=== PATIENT | male | born 1970 | race American Indian/Alaskan Native ===

== ENCOUNTER 2016-11-25 12:12 | Inpatient (IN) | payer OTHER ==
[2016-11-25] MEDS ORDERED: ZOFRAN IM ONE (13:15)
--- NOTE | 2016-11-25 13:17 | Emergency Department Report ---
Chief Complaint: Abdominal Pain Stated Complaint: ABD PAIN Time Seen by Provider: 11/25/16 13:11 - HPI History of Present Illness: 46-year-old male comes in with abdominal pain that radiates to his lower back that started 2 days ago. He does report nausea vomiting in triage he denies any diarrhea or fever. History of pancreatitis, kidney Fair and hypertension. Patient is currently on amlodipine 10 mg lisinopril 20 mg - Exam Vital Signs: Vital Signs 11/25/16 12:36 Temperature 97.8 F Pulse Rate 119 H Respiratory 24 Rate Blood Pressure 184/121 O2 Sat by Pulse 100 Oximetry Physical Exam: Vital signs. Blood pressure 168/116 heart rate is 119. Patient appears to be in discomfort. cardio: Tachycardic S1-S2 Respiratory: Clear to auscultation bilateral Abdomen: Very tender to palpate even with light palpitation. Bowel sounds within normal limits MSE screening note: Focused history and physical exam performed. Due to findings the following was ordered: Abdominal protocol ordered. We'll also order Zofran IM 8 mg to be evaluated in the back by the ER doctor ED Disposition for MSE Condition: Stable
[2016-11-25 13:37] LABS: Basophils % (Auto) 0.4 % (0.0-1.8); Mean Corpuscular HGB Conc 32 % (32-34); Mean Corpuscular Hemoglobin 27 pg (28-32); Mean Corpuscular Volume 85 fl (84-94); Platelet Count 311 K/mm3 (140-440); Red Blood Count 5.53 M/mm3 (3.65-5.03); Red Cell Distribution Width 16.3 % (13.2-15.2); White Blood Count 14.4 K/mm3 (4.5-11.0)
[2016-11-25 13:59] LABS: Alanine Aminotransferase 23 units/L (7-56); Albumin 4.7 g/dL (3.9-5); Albumin/Globulin Ratio 1.1 %; Alkaline Phosphatase 124 units/L (35-129); Anion Gap 32 mmol/L; Bilirubin,Total 0.6 mg/dL (0.1-1.2); Blood Urea Nitrogen 21 mg/dL (9-20); Calcium 10.6 mg/dL (8.4-10.2); Carbon Dioxide 18 mmol/L (22-30); Chloride 94.1 mmol/L (98-107); Glucose 145 mg/dL (75-100); Potassium 4.2 mmol/L (3.6-5.0); Sodium 140 mmol/L (137-145); Total Protein 8.8 g/dL (6.3-8.2)
--- NOTE | 2016-11-25 14:16 | Cat Scan Report ---
CT scan of abdomen and pelvis without IV contrast: History: Upper quadrant pain tenderness and vomiting. Findings: Normal lung bases. No pleural pericardial effusion. Normal liver spleen pancreas and gallbladder. There is thickening noted of the wall of the antrum and duodenum. Stranding of the adjacent fatty tissue. No definite free air is identified. No fluid level is seen. Visualized adrenals and kidneys appears normal. No evidence of adenopathy. Impression: Findings suggestive of severe peptic ulcer disease. Further evaluation is recommended.
[2016-11-25 14:36] LABS: Lipase 1387 units/L (13-60)
--- NOTE | 2016-11-25 15:10 | Admit Criteria Form ---
Admission Criteria Documentation: PANCREATITIS Clinical Indications for Admission to Inpatient Care (Place 'X' for any and all applicable criteria): Admission is indicated for ANY ONE of the following (1)(2)(3)(4): [X]I. Acute pancreatitis[A] as indicated by 2 or more of the following: [X]a) Abdominal pain (eg, epigastric, left upper quadrant) [X]b) Serum amylase or serum lipase greater than 3 times the upper limit of normal [ ]c) Characteristic findings from abdominal imaging (eg, pancreatic inflammation, pancreatic necrosis, peripancreatic fluid collection)[B] [ ]II. Pancreatitis (acute or chronic) requiring inpatient care as indicated by 1 or more of the following: [ ]a) Inability to maintain oral hydration Hypoxemia [ ]b) Evidence of infection (eg, fever, peripancreatic abscess) [ ]c) Severe pain requiring acute inpatient management [ ]d) Hemodynamic instability [ ]e) Hypoxemia [ ]f) Acute renal failure [ ]g) Severe electrolyte abnormalities Extended stay beyond goal length of stay may be needed for (1)(11) [ ]a) Severe acute pancreatitis (10)(19) [ ]b) Persistent symptoms, ascites, or pleural effusion [ ]c) Abdominal compartment syndrome (10) [ ]d) Late complications [ ]e) Acute renal failure (27) [ ]f) Gallstones in gallbladder The original [employer] content created by [employer] has been revised. The portions of the content which have been revised are identified through the use of italic text or in bold,and [facility] has neither reviewed nor approved the modified material.All other unmodified content is copyright [employer]. Please see references footnoted in the original [employer] edition 2016 Admission Criteria Met: Yes
[2016-11-25] MEDS ORDERED: REGLAN IV ONE (15:26)
[2016-11-25] MEDS ORDERED: NACL 0.9% 1000 ML 1,000 ML IV ONE (15:26)
[2016-11-25] MEDS ORDERED: DILAUDID IV ONE ×3 (15:26→20:40)
[2016-11-25] MEDS ORDERED: PROTONIX IV ONE (15:26)
--- NOTE | 2016-11-25 16:02 | Emergency Department Report ---
ED Abdominal Pain HPI - General Chief Complaint: Abdominal Pain Stated Complaint: ABD PAIN Time Seen by Provider: 11/25/16 13:11 Source: patient, RN notes reviewed Mode of arrival: Ambulatory Limitations: No Limitations - History of Present Illness Initial Comments: This is a 46-year-old male. He is previously unknown to me. He is visiting from [place]. Has a past medical history of pancreatitis, hypertension, renal insufficiency. Patient reports being admitted to a hospital in [place] last year for pancreatitis. He denies alcohol consumption. He denies recent viral symptoms. Presents to the ER complaining diffuse abdominal pain that radiates to his back. Positive nausea and vomiting. Positive generalized weakness. Denies alcohol consumption. Pain is sharp. It increases with palpation and range of motion. Decreases with rest. Denies hematemesis, denies bright red blood per rectum. MD Complaint: abdominal pain -: Gradual Location: diffuse Radiation: back Severity scale (0 -10): 10 Quality: aching Consistency: constant Improves With: medication Worsens With: vomiting Associated Symptoms: nausea, vomiting - Related Data Home Medications Medication Instructions Recorded Confirmed Last Taken Lisinopril [Zestril TAB] 20 mg PO DAILY 11/25/16 11/25/16 Unknown amLODIPine [Norvasc] 10 mg PO QHS 11/25/16 11/25/16 Unknown Allergies Allergy/AdvReac Type Severity Reaction Status Date / Time No Known Allergies Allergy Unverified 11/25/16 12:35 ED Review of Systems ROS: Stated complaint: ABD PAIN Other details as noted in HPI Constitutional: malaise, weakness Eyes: denies: vision change ENT: denies: epistaxis Respiratory: denies: cough Cardiovascular: denies: chest pain Gastrointestinal: abdominal pain, nausea, vomiting Genitourinary: denies: dysuria Musculoskeletal: back pain Skin: denies: lesions Neurological: weakness Psychiatric: as per HPI, anxiety ED Past Medical Hx - Past Medical History Hx Hypertension: Yes Additional medical history: Kidney failure, pancreatitis - Surgical History Additional Surgical History: Tonsil, carpal tunnel - Social History Smoking Status: Current Every Day Smoker Substance Use Type: None - Medications Home Medications: Home Medications Medication Instructions Recorded Confirmed Last Taken Type Lisinopril [Zestril TAB] 20 mg PO DAILY 11/25/16 11/25/16 Unknown History amLODIPine [Norvasc] 10 mg PO QHS 11/25/16 11/25/16 Unknown History ED Physical Exam - General Limitations: No Limitations General appearance: alert, in distress - Head Head exam: Present: atraumatic, normocephalic - Eye Eye exam: Present: normal appearance, EOMI. Absent: nystagmus - ENT ENT exam: Present: normal exam, normal orophraynx, mucous membranes moist - Neck Neck exam: Present: normal inspection, full ROM. Absent: tenderness, meningismus - Respiratory Respiratory exam: Present: normal lung sounds bilaterally. Absent: respiratory distress, wheezes, rales, rhonchi, stridor, chest wall tenderness - Cardiovascular Cardiovascular Exam: Present: normal rhythm, tachycardia, normal heart sounds. Absent: systolic murmur, diastolic murmur, rubs, gallop - GI/Abdominal GI/Abdominal exam: Present: soft, tenderness, normal bowel sounds. Absent: distended, guarding, rebound, rigid, pulsatile mass - Rectal Rectal exam: Present: deferred - Extremities Exam Extremities exam: Present: normal inspection, full ROM, normal capillary refill. Absent: tenderness, pedal edema, joint swelling, calf tenderness - Back Exam Back exam: Present: normal inspection, full ROM. Absent: tenderness, CVA tenderness (R), CVA tenderness (L), muscle spasm, paraspinal tenderness, vertebral tenderness - Neurological Exam Neurological exam: Present: alert, oriented X3 - Psychiatric Psychiatric exam: Present: anxious - Skin Skin exam: Present: warm, dry, intact, normal color. Absent: rash ED Course Vital Signs 11/25/16 11/25/16 11/25/16 12:36 14:20 14:48 Temperature 97.8 F 98.5 F Pulse Rate 119 H 111 H Respiratory 24 16 18 Rate Blood Pressure 184/121 Blood Pressure 178/105 [Left] O2 Sat by Pulse 100 98 98 Oximetry 11/25/16 15:00 Temperature Pulse Rate 110 H Respiratory 20 Rate Blood Pressure Blood Pressure 174/112 [Left] O2 Sat by Pulse 100 Oximetry - Reevaluation(s) Reevaluation #1: 11/25/16 16:02 differential diagnosis: GERD, gastritis, pancreatitis, peptic ulcer disease, hypertensive urgency secondary to pain Assessment and plan: This is a 46-year-old male with diffuse abdominal pain, history of pancreatitis, elevated lipase, diffuse abdominal tenderness, CT scan of the abdomen and pelvis demonstrates no surgical disease. He will be given IV fluids, pain medication, nausea medication. Elevated blood pressure is appreciated, this is most likely secondary to his pain. Case is discussed with the Hospital physician, Dr. Sims, who accepts the patient to his service. He requests gastroenterology consultation. Case is discussed with gastroenterology, Dr. chopra, who graciously will follow along as a consult. ED Medical Decision Making - Lab Data Result diagrams: 11/25/16 13:27 11/25/16 13:27 Vital Signs 11/25/16 11/25/16 11/25/16 12:36 14:20 14:48 Temperature 97.8 F 98.5 F Pulse Rate 119 H 111 H Respiratory 24 16 18 Rate Blood Pressure 184/121 Blood Pressure 178/105 [Left] O2 Sat by Pulse 100 98 98 Oximetry Lab Results 11/25/16 11/25/16 Range/Units 13:27 13:27 WBC 14.4 H (4.5-11.0) K/mm3 RBC 5.53 H (3.65-5.03) M/mm3 Hgb 15.0 (11.8-15.2) gm/dl Hct 47.0 H (35.5-45.6) % MCV 85 (84-94) fl MCH 27 L (28-32) pg MCHC 32 (32-34) % RDW 16.3 H (13.2-15.2) % Plt Count 311 (140-440) K/mm3 Lymph % (Auto) 9.8 L (13.4-35.0) % [place] % (Auto) 2.6 (0.0-7.3) % Eos % (Auto) 0.0 (0.0-4.3) % Baso % (Auto) 0.4 (0.0-1.8) % Lymph # 1.4 (1.2-5.4) K/mm3 [place] # 0.4 (0.0-0.8) K/mm3 Eos # 0.0 (0.0-0.4) K/mm3 Baso # 0.1 (0.0-0.1) K/mm3 Seg Neutrophils % 87.2 H (40.0-70.0) % Seg Neutrophils # 12.6 H (1.8-7.7) K/mm3 Sodium 140 (137-145) mmol/L Potassium 4.2 (3.6-5.0) mmol/L Chloride 94.1 L (98-107) mmol/L Carbon Dioxide 18 L (22-30) mmol/L Anion Gap 32 mmol/L BUN 21 H (9-20) mg/dL Creatinine 1.0 (0.8-1.5) mg/dL Estimated GFR > 60 ml/min BUN/Creatinine Ratio 21.00 % Glucose 145 H (75-100) mg/dL Calcium 10.6 H (8.4-10.2) mg/dL Total Bilirubin 0.6 (0.1-1.2) mg/dL AST 18 (5-40) units/L ALT 23 (7-56) units/L Alkaline Phosphatase 124 (35-129) units/L Total Protein 8.8 H (6.3-8.2) g/dL Albumin 4.7 (3.9-5) g/dL Albumin/Globulin Ratio 1.1 % Lipase 1387 H (13-60) units/L - Radiology Data Radiology results: report reviewed, image reviewed Noncontrast CT scan of the abdomen and pelvis suggest severe peptic ulcer disease. No acute surgical processes noted. No evidence of perforation is noted. Critical care attestation.: If time is entered above; I have spent that time in minutes in the direct care of this critically ill patient, excluding procedure time. ED Disposition Clinical Impression: Pancreatitis Qualifiers: Chronicity: acute Pancreatitis type: other Acute pancreatitis complication: unspecified Qualified Code(s): K85.80 - Other acute pancreatitis without necrosis or infection Disposition: OP ADMITTED IP TO THIS HOSP Is pt being admited?: Yes Condition: Stable Referrals: PRIMARY CARE, [Primary Care Provider] - 3-5 Days
[2016-11-25 16:34] LABS: Bilirubin,Urine NEG (Negative); Blood,Urine NEG (Negative); Ketones,Urine 80 mg/dL (Negative); Leukocyte Esterase,Urine NEG (Negative); Mucus,Urine FEW /HPF; Nitrite,Urine NEG (Negative); Urobilinogen,Urine < 2.0 mg/dL (<2.0)
[2016-11-25 16:44] LABS: Protein,Urine >500 mg/dL (Negative)
--- NOTE | 2016-11-25 20:41 | Event Note ---
Date: 11/25/16 See H/p in reports Acute pancreatitis PUD by CT scan COPD HTN uncontrolled Nicotine Dependence
[2016-11-25] MEDS ORDERED: TYLENOL PO PRN (20:44)
[2016-11-25] MEDS ORDERED: MILK OF MAGNESIA PO PRN (20:44)
[2016-11-25] MEDS ORDERED: DULCOLAX PR PRN (20:44)
[2016-11-25] MEDS ORDERED: D5/0.45NS 1,000 ML IV SCH (21:00)
[2016-11-25] MEDS ORDERED: CATAPRES-TTS PATCH TD SCH (22:00)
[2016-11-25] MEDS: ZOFRAN IV PRN (23:44)
[2016-11-25] MEDS: DILAUDID IV PRN (23:44)
[2016-11-26] MEDS: DILAUDID IV PRN ×6 (04:00→20:08)
[2016-11-26] MEDS: ZOFRAN IV PRN ×6 (04:14→20:08)
--- NOTE | 2016-11-26 07:00 | Gastroenterology Consultation ---
History of Present Illness - Reason for Consult Consult date: 11/26/16 Abdominal pain, nausea/vomiting Requesting physician: FREEMAN AYALA - History of Present Illness Asked to see this 46yo man visiting from [place] for evaluation of abdominal pain. He states that the pain began 2 days ago and states that it is in his entire abdomen, but moreso in the upper abdomen. He has associated nausea/ vomiting. Mr. Garcia states that he has a history of pancreatitis secondary to EtOH 1.5 yrs ago and that he largely ceased EtOH intake. 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 No other NSAID usage. No black, tarry stools. Labs revealed a normal Hb, but elevated lipase; however, CT scan mentions severe PUD. No CP/SOB. Past History Past Medical History: other (pancreatitis, kidney failure) Past Surgical History: tonsillectomy, Other (carpal tunnel) Social history: smoking, other (drinks 1 drink per week) Family history: no significant family history Medications and Allergies Allergies Allergy/AdvReac Type Severity Reaction Status Date / Time No Known Allergies Allergy Unverified 11/25/16 12:35 Home Medications Medication Instructions Recorded Confirmed Last Taken Type Lisinopril [Zestril TAB] 20 mg PO DAILY 11/25/16 11/25/16 Unknown History amLODIPine [Norvasc] 10 mg PO QHS 11/25/16 11/25/16 Unknown History Active Meds: Active Medications Acetaminophen (Tylenol) 650 mg PO Q4H PRN PRN Reason: Pain MILD(1-3)/Fever >100.5/JIMENEZ Bisacodyl (Dulcolax) 10 mg LA QDAY PRN PRN Reason: Constipation unrelieved by MOM Clonidine HCl (Catapres-Tts Patch) 0.2 mg TD Fr NIDA Last Admin: 11/25/16 23:45 Dose: 0.2 mg Hydromorphone HCl (Dilaudid) 2 mg IV Q3H PRN PRN Reason: Pain , Severe (7-10) Last Admin: 11/26/16 04:00 Dose: 2 mg Dextrose/Sodium Chloride (D5/0.45ns) 1,000 mls @ 100 mls/hr IV DIRECT NIDA Last Admin: 11/25/16 23:43 Dose: 100 mls/hr Magnesium Hydroxide (Milk Of Magnesia) 30 ml PO Q4H PRN PRN Reason: Constipation Ondansetron HCl (Zofran) 4 mg IV Q3H PRN PRN Reason: N/V unrelieved by Tiff Last Admin: 11/26/16 04:14 Dose: 4 mg Review of Systems - Review of Systems All systems: negative (abdominal pain, nausea/vomiting) Exam - Constitutional Vital Signs: Temp Pulse Resp BP Pulse Ox 98.0 F 112 H 18 187/108 100 11/26/16 00:00 11/26/16 00:00 11/26/16 04:00 11/26/16 00:00 11/25/16 21:00 General appearance: mild distress - EENT Eyes: PERRL - Neck Neck: supple - Respiratory Respiratory: bilateral: CTA - Cardiovascular Rhythm: regular Heart Sounds: Present: S1 & S2 Extremities: No edema - Gastrointestinal General gastrointestinal: Present: soft, tender (diffusely, but mostly in epigastrium), non-distended, normal bowel sounds - Integumentary Integumentary: Present: clear - Neurologic Neurological: alert and oriented x3 - Psychiatric Psychiatric: appropriate mood/affect - Labs CBC & Chem 7: 11/25/16 13:27 11/25/16 13:27 - Imaging CT Scan: report reviewed (c/w severe PUD) Assessment and Plan 46yo man admitted with 2 days of worsening abdominal pain, nausea/vomiting. He has a history of pancreatitis 1.5yrs ago, secondary to EtOH. He states that he is drinking minimal EtOH at this time. Lipase is elevated and his physical exam is c/w pancreatitis; however, CT scan mentions severe PUD. He has a hx of NSAID usage, but his pain is somewhat out of proportion to what is typically seen with PUD. Rec: 1) Increase IVF to 200cc/hr 2) Check TG's 3) Check CRP 4) Pain control/anti-emetics 5) Can give empiric PPI for now and if he fails to progress over the next 24-36 hours, I will consider an EGD Thank you for allowing me to participate in the care of your patient.
[2016-11-26] MEDS: NACL 0.9% 1000 ML 1,000 ML IV SCH ×2 (07:43→17:17)
[2016-11-26] MEDS: PROTONIX IV SCH (10:21)
[2016-11-26] MEDS ORDERED: CATAPRES-TTS PATCH TD SCH ×3 (10:24→11:00)
[2016-11-26] MEDS ORDERED: HABITROL TD SCH (11:00)
[2016-11-26] MEDS ORDERED: NORMODYNE IV ONE (11:00)
--- NOTE | 2016-11-26 11:13 | History and Physical Report ---
CHIEF COMPLAINT: Severe abdominal pain for 2 days. HISTORY OF PRESENT ILLNESS: A 46-year-old male with a history of pancreatitis in the past comes in for severe nausea, vomiting, and pain. Pain is 10 on a scale of 1-10. It is very sharp pain. No hematemesis. No bright red blood per rectum. Pain is localized to the epigastric and periumbilical region. Vomited three times. He had pancreatitis one year ago in [place]. The patient denies alcohol consumption. The patient states that it was idiopathic pancreatitis. PAST MEDICAL HISTORY: Significant for hypertension, kidney failure, and pancreatitis. PAST SURGICAL HISTORY: Tonsils removal and carpal tunnel surgery. SOCIAL HISTORY: Smokes a pack a day. CURRENT MEDICATIONS: Lisinopril 20 mg daily and amlodipine 10 mg p.o. at bedtime. FAMILY HISTORY: Significant for hypertension. REVIEW OF SYSTEMS: CONSTITUTIONAL: No weight loss. No weight gain. HEENT: No sore throat. No postnasal drip. CARDIOVASCULAR: No chest pain. No palpitations. RESPIRATORY SYSTEM: No cough. GASTROINTESTINAL: Severe epigastric pain present, but no hemetemesis. No melena. Vomiting 3-4 times for today. No diarrhea. Pain is 10 on a scale of 1-10. GENITOURINARY SYSTEM: No dysuria. No flank pain. MUSCULOSKELETAL SYSTEM: No joint pains. No muscle pains. CENTRAL NERVOUS SYSTEM: No syncope. No seizures. SKIN: No rashes. A 14-point review of systems was done and essentially negative. PHYSICAL EXAMINATION: GENERAL: Middle aged male cooperative during examination. VITAL SIGNS: Blood pressure is 184/121 and repeat was 174/112. HEENT: Unremarkable. Pupils are equal and reactive. NECK: Supple. No lymphadenopathy. No thyromegaly. LUNGS: Clear to auscultation and percussion. Good air entry. CARDIOVASCULAR: S1 and S2 heard. No gallop. No murmur. No rub. Apical impulse in left fifth intercostal space and midclavicular line. ABDOMEN: Tender in the epigastric region. Guarding present in the epigastric region. Bowel sounds are normal. Hernial orifices are normal. EXTREMITIES: Good pedal pulses. No pedal edema. CENTRAL NERVOUS SYSTEM: Alert and oriented x4. Nonfocal exam. LABORATORY DATA: Significant for white count of 14,400, H and H 15.0 and 47.0, platelet count is 311,000, sodium is 140, potassium is 4.2, chloride is 94.1, bicarbonate is 18, BUN and creatinine is 21 and 1.0, glucose is 146, calcium is 10.6, lipase is 1387, and total protein is 8.8. Urine is negative. DIAGNOSTIC DATA: Abdominal CAT scan was done, which did not show any acute pancreatitis, but showed severe peptic ulcer disease. There was thickening of the wall of the antrum and duodenum stranding of adjacent fatty tissue. ASSESSMENT AND PLAN: 1. Acute pancreatitis. We will keep the patient n.p.o. IV fluids for the time being. TPN if necessary after 48-72 hours. 2. Peptic ulcer disease, possible. GI consult requested. 3. Hypertensive emergency. The patient was initiated on Catapres TTS 2 patch, which was changed Catapres TTS 3 patch. 4. Nicotine dependence with Nicoderm patch and 21 mg daily initiated. 5. Deep venous thrombosis prophylaxis, Lovenox 40 mg subcutaneous daily. JOB# [id number] VSAllen/NTS
--- NOTE | 2016-11-26 12:43 | Progress Note ---
Assessment and Plan Assessment and plan: Acute pancreatitis -We'll keep nothing by mouth - Continue aggressive IV fluid hydration -As needed pain and nausea medicine with IV - GI following Hypertensive emergency -Continue clonidine patch - Labetalol IV as needed Nicotine dependence -Placed on nicotine patch GI and DVT prophylaxis -Continue Protonix and Lovenox History Interval history: Patient seen and examined. Medical records and medication list reviewed. Patient c/o abdominal pain and nausea with vomiting Hospitalist Physical - Physical exam Narrative exam: GENERAL: well-developed white male lying on bed appeared to be in moderate discomfort. HEENT: Normocephalic. Atraumatic. No conjunctival congestion or icterus. Patient has moist mucous membranes. NECK: Supple. Trachea midline. CHEST/LUNGS: Clear to auscultated bilaterally, breathing nonlabored. No wheezes crackles or rhonchi. HEART/CARDIOVASCULAR: Regular in rate and rhythm. S1 and S2 positive. ABDOMEN: Abdomen is soft, epigastric tenderness. Patient has normal bowel sounds. SKIN: There is no rash. Warm and dry. NEURO: No focal motor deficit. Follows command. MUSCULOSKELETAL: No joint effusion or tenderness. EXTRIMITY: No edema, no cyanosis or clubbing. PSYCH: Cooperative. - Constitutional Vitals: Temp Pulse Resp BP Pulse Ox 98.0 F 95 H 18 188/112 100 11/26/16 00:00 11/26/16 11:15 11/26/16 04:00 11/26/16 11:15 11/25/16 21:00 Results - Labs CBC & Chem 7: 11/25/16 13:27 11/25/16 13:27 Labs: Laboratory Last Values WBC 14.4 K/mm3 (4.5-11.0) H 11/25/16 13:27 RBC 5.53 M/mm3 (3.65-5.03) H 11/25/16 13:27 Hgb 15.0 gm/dl (11.8-15.2) 11/25/16 13:27 Hct 47.0 % (35.5-45.6) H 11/25/16 13:27 MCV 85 fl (84-94) 11/25/16 13:27 MCH 27 pg (28-32) L 11/25/16 13:27 MCHC 32 % (32-34) 11/25/16 13:27 RDW 16.3 % (13.2-15.2) H 11/25/16 13:27 Plt Count 311 K/mm3 (140-440) 11/25/16 13:27 Lymph % (Auto) 9.8 % (13.4-35.0) L 11/25/16 13:27 [place] % (Auto) 2.6 % (0.0-7.3) 11/25/16 13:27 Eos % (Auto) 0.0 % (0.0-4.3) 11/25/16 13:27 Baso % (Auto) 0.4 % (0.0-1.8) 11/25/16 13:27 Lymph # 1.4 K/mm3 (1.2-5.4) 11/25/16 13:27 [place] # 0.4 K/mm3 (0.0-0.8) 11/25/16 13:27 Eos # 0.0 K/mm3 (0.0-0.4) 11/25/16 13:27 Baso # 0.1 K/mm3 (0.0-0.1) 11/25/16 13:27 Seg Neutrophils % 87.2 % (40.0-70.0) H 11/25/16 13:27 Seg Neutrophils # 12.6 K/mm3 (1.8-7.7) H 11/25/16 13:27 Sodium 140 mmol/L (137-145) 11/25/16 13:27 Potassium 4.2 mmol/L (3.6-5.0) 11/25/16 13:27 Chloride 94.1 mmol/L (98-107) L 11/25/16 13:27 Carbon Dioxide 18 mmol/L (22-30) L 11/25/16 13:27 Anion Gap 32 mmol/L 11/25/16 13:27 BUN 21 mg/dL (9-20) H 11/25/16 13:27 Creatinine 1.0 mg/dL (0.8-1.5) 11/25/16 13:27 Estimated GFR > 60 ml/min 11/25/16 13:27 BUN/Creatinine Ratio 21.00 % 11/25/16 13:27 Glucose 145 mg/dL (75-100) H 11/25/16 13:27 Calcium 10.6 mg/dL (8.4-10.2) H 11/25/16 13:27 Total Bilirubin 0.6 mg/dL (0.1-1.2) 11/25/16 13:27 AST 18 units/L (5-40) 11/25/16 13:27 ALT 23 units/L (7-56) 11/25/16 13:27 Alkaline Phosphatase 124 units/L (35-129) 11/25/16 13:27 C-Reactive Protein 1.00 mg/dL (0.00-1.30) 11/26/16 07:12 Total Protein 8.8 g/dL (6.3-8.2) H 11/25/16 13:27 Albumin 4.7 g/dL (3.9-5) 11/25/16 13:27 Albumin/Globulin Ratio 1.1 % 11/25/16 13:27 Triglycerides 86 mg/dL (2-149) 11/26/16 07:12 Lipase 1387 units/L (13-60) H 11/25/16 13:27 Urine Color Yellow (Yellow) 11/25/16 15:49 Urine Turbidity Clear (Clear) 11/25/16 15:49 Urine pH 5.0 (5.0-7.0) 11/25/16 15:49 Ur Specific [place] 1.020 (1.003-1.030) 11/25/16 15:49 Urine Protein >500 mg/dL (Negative) 11/25/16 15:49 Urine Glucose (UA) Neg mg/dL (Negative) 11/25/16 15:49 Urine Ketones 80 mg/dL (Negative) 11/25/16 15:49 Urine Blood Neg (Negative) 11/25/16 15:49 Urine Nitrite Neg (Negative) 11/25/16 15:49 Urine Bilirubin Neg (Negative) 11/25/16 15:49 Urine Urobilinogen < 2.0 mg/dL (<2.0) 11/25/16 15:49 Ur Leukocyte Esterase Neg (Negative) 11/25/16 15:49 Urine WBC (Auto) 2.0 /HPF (0.0-6.0) 11/25/16 15:49 Urine RBC (Auto) 1.0 /HPF (0.0-6.0) 11/25/16 15:49 Urine Mucus Few /HPF 11/25/16 15:49 - Imaging and Cardiology CT scan - abdomen: report reviewed
[2016-11-26] MEDS ORDERED: APRESOLINE IV PRN (12:46)
[2016-11-27] MEDS: DILAUDID IV PRN ×7 (01:10→21:18)
[2016-11-27] MEDS: ZOFRAN IV PRN ×7 (01:10→21:18)
[2016-11-27] MEDS: NACL 0.9% 1000 ML 1,000 ML IV SCH ×2 (01:11→06:53)
[2016-11-27 07:53] LABS: Basophils % (Auto) 0.1 % (0.0-1.8); Eosinophils % (Auto) 0.3 % (0.0-4.3); Hematocrit 40.8 % (35.5-45.6); Hemoglobin 12.7 gm/dl (11.8-15.2); Mean Corpuscular HGB Conc 31 % (32-34); Mean Corpuscular Hemoglobin 27 pg (28-32); Mean Corpuscular Volume 87 fl (84-94); Platelet Count 209 K/mm3 (140-440); Red Cell Distribution Width 16.8 % (13.2-15.2)
--- NOTE | 2016-11-27 08:22 | Gastroenterology Progress Note ---
Assessment and Plan 46yo man admitted with 2 days of worsening abdominal pain, nausea/vomiting. He has a history of pancreatitis 1.5yrs ago, secondary to EtOH. He states that he is drinking minimal EtOH at this time. Lipase is elevated and his physical exam is c/w pancreatitis; however, CT scan mentions severe PUD. He has a hx of NSAID usage, but his pain is somewhat out of proportion to what is typically seen with PUD. He has not improved much in the past 24 hours with IVF and his CRP is normal, which suggests that he may not truly have pancreatitis. PUD is now being more strongly considered. Rec: 1) D/C IVF 2) Start clear liquids 3) Maintain PPI 4) NPO after MN for EGD tomorrow Subjective Date of service: 11/27/16 Principal diagnosis: Abdominal pain Interval history: Pt seen/examined this AM. Still w/ severe abdominal pain. CRP was 1.0. No fevers, chills. Has been on NS at 200cc/hr without substantial improvement. No CP/SOB. Objective - Constitutional Vitals: Temp Pulse Resp BP Pulse Ox 97 F L 91 H 18 168/104 96 11/26/16 22:58 11/26/16 22:58 11/27/16 07:21 11/26/16 22:58 11/26/16 22:58 General appearance: mild distress - Neck Neck: supple - Respiratory Respiratory: bilateral: CTA - Cardiovascular Rhythm: regular Heart Sounds: Present: S1 & S2 - Extremities Extremities: No edema - Gastrointestinal General gastrointestinal: Present: soft, tender (diffusely, but moreso in the epigastrium), non-distended, normal bowel sounds - Integumentary Integumentary: Present: clear - Neurologic Neurological: alert and oriented x3 - Psychiatric Psychiatric: appropriate mood/affect - Labs CBC & Chem 7: 11/27/16 06:58 11/25/16 13:27 Labs: Laboratory Results - last 24 hr 11/27/16 06:58 WBC 10.0 RBC 4.70 Hgb 12.7 Hct 40.8 D MCV 87 MCH 27 L MCHC 31 L RDW 16.8 H Plt Count 209 Lymph % (Auto) 15.3 [place] % (Auto) 8.0 H Eos % (Auto) 0.3 Baso % (Auto) 0.1 Lymph # 1.5 [place] # 0.8 Eos # 0.0 Baso # 0.0 Seg Neutrophils % 76.3 H Seg Neutrophils # 7.6
[2016-11-27 08:24] LABS: Anion Gap 20 mmol/L; BUN/Creatinine Ratio 32.85; Blood Urea Nitrogen 23 mg/dL (9-20); Calcium 8.9 mg/dL (8.4-10.2); Carbon Dioxide 22 mmol/L (22-30); Glucose 95 mg/dL (75-100); Potassium 4.2 mmol/L (3.6-5.0); Sodium 140 mmol/L (137-145)
--- NOTE | 2016-11-27 08:43 | Progress Note ---
Assessment and Plan Assessment and plan: Acute pancreatitis * start clear liquid today * Continue IV fluid hydration * As needed pain and nausea medicine with IV * GI following, trend lipase PUD * CT abdomen showed possible PUD * plan for EGD tomorrow Hypertensive emergency * Continue clonidine patch * Labetalol IV as needed Nicotine dependence * Placed on nicotine patch GI and DVT prophylaxis * Continue Protonix and Lovenox History Interval history: Patient seen and examined. Medical records and medication list reviewed. Patient still c/o abdominal pain but slightly improved plan for EGD tomorrow Hospitalist Physical - Physical exam Narrative exam: GENERAL: well-developed white male lying on bed appeared to be in moderate discomfort. HEENT: Normocephalic. Atraumatic. No conjunctival congestion or icterus. Patient has moist mucous membranes. NECK: Supple. Trachea midline. CHEST/LUNGS: Clear to auscultated bilaterally, breathing nonlabored. No wheezes crackles or rhonchi. HEART/CARDIOVASCULAR: Regular in rate and rhythm. S1 and S2 positive. ABDOMEN: Abdomen is soft, epigastric tenderness. Patient has normal bowel sounds. SKIN: There is no rash. Warm and dry. NEURO: No focal motor deficit. Follows command. MUSCULOSKELETAL: No joint effusion or tenderness. EXTRIMITY: No edema, no cyanosis or clubbing. PSYCH: Cooperative. - Constitutional Vitals: Temp Pulse Resp BP Pulse Ox 97 F L 91 H 18 168/104 96 11/26/16 22:58 11/26/16 22:58 11/27/16 07:21 11/26/16 22:58 11/26/16 22:58 Results - Labs CBC & Chem 7: 11/27/16 06:58 11/27/16 06:58 Labs: Laboratory Last Values WBC 10.0 K/mm3 (4.5-11.0) 11/27/16 06:58 RBC 4.70 M/mm3 (3.65-5.03) 11/27/16 06:58 Hgb 12.7 gm/dl (11.8-15.2) 11/27/16 06:58 Hct 40.8 % (35.5-45.6) D 11/27/16 06:58 MCV 87 fl (84-94) 11/27/16 06:58 MCH 27 pg (28-32) L 11/27/16 06:58 MCHC 31 % (32-34) L 11/27/16 06:58 RDW 16.8 % (13.2-15.2) H 11/27/16 06:58 Plt Count 209 K/mm3 (140-440) 11/27/16 06:58 Lymph % (Auto) 15.3 % (13.4-35.0) 11/27/16 06:58 [place] % (Auto) 8.0 % (0.0-7.3) H 11/27/16 06:58 Eos % (Auto) 0.3 % (0.0-4.3) 11/27/16 06:58 Baso % (Auto) 0.1 % (0.0-1.8) 11/27/16 06:58 Lymph # 1.5 K/mm3 (1.2-5.4) 11/27/16 06:58 [place] # 0.8 K/mm3 (0.0-0.8) 11/27/16 06:58 Eos # 0.0 K/mm3 (0.0-0.4) 11/27/16 06:58 Baso # 0.0 K/mm3 (0.0-0.1) 11/27/16 06:58 Seg Neutrophils % 76.3 % (40.0-70.0) H 11/27/16 06:58 Seg Neutrophils # 7.6 K/mm3 (1.8-7.7) 11/27/16 06:58 Sodium 140 mmol/L (137-145) 11/27/16 06:58 Potassium 4.2 mmol/L (3.6-5.0) 11/27/16 06:58 Chloride 102.0 mmol/L (98-107) 11/27/16 06:58 Carbon Dioxide 22 mmol/L (22-30) 11/27/16 06:58 Anion Gap 20 mmol/L 11/27/16 06:58 BUN 23 mg/dL (9-20) H 11/27/16 06:58 Creatinine 0.7 mg/dL (0.8-1.5) L 11/27/16 06:58 Estimated GFR > 60 ml/min 11/27/16 06:58 BUN/Creatinine Ratio 32.85 % 11/27/16 06:58 Glucose 95 mg/dL (75-100) 11/27/16 06:58 Calcium 8.9 mg/dL (8.4-10.2) D 11/27/16 06:58 Total Bilirubin 0.6 mg/dL (0.1-1.2) 11/25/16 13:27 AST 18 units/L (5-40) 11/25/16 13:27 ALT 23 units/L (7-56) 11/25/16 13:27 Alkaline Phosphatase 124 units/L (35-129) 11/25/16 13:27 C-Reactive Protein 1.00 mg/dL (0.00-1.30) 11/26/16 07:12 Total Protein 8.8 g/dL (6.3-8.2) H 11/25/16 13:27 Albumin 4.7 g/dL (3.9-5) 11/25/16 13:27 Albumin/Globulin Ratio 1.1 % 11/25/16 13:27 Triglycerides 86 mg/dL (2-149) 11/26/16 07:12 Lipase 1387 units/L (13-60) H 11/25/16 13:27 Urine Color Yellow (Yellow) 11/25/16 15:49 Urine Turbidity Clear (Clear) 11/25/16 15:49 Urine pH 5.0 (5.0-7.0) 11/25/16 15:49 Ur Specific [place] 1.020 (1.003-1.030) 11/25/16 15:49 Urine Protein >500 mg/dL (Negative) 11/25/16 15:49 Urine Glucose (UA) Neg mg/dL (Negative) 11/25/16 15:49 Urine Ketones 80 mg/dL (Negative) 11/25/16 15:49 Urine Blood Neg (Negative) 11/25/16 15:49 Urine Nitrite Neg (Negative) 11/25/16 15:49 Urine Bilirubin Neg (Negative) 11/25/16 15:49 Urine Urobilinogen < 2.0 mg/dL (<2.0) 11/25/16 15:49 Ur Leukocyte Esterase Neg (Negative) 11/25/16 15:49 Urine WBC (Auto) 2.0 /HPF (0.0-6.0) 11/25/16 15:49 Urine RBC (Auto) 1.0 /HPF (0.0-6.0) 11/25/16 15:49 Urine Mucus Few /HPF 11/25/16 15:49 - Imaging and Cardiology CT scan - abdomen: report reviewed
[2016-11-27] MEDS: PROTONIX IV SCH (10:52)
[2016-11-27] MEDS: CARAFATE PO SCH ×2 (17:04→21:18)
[2016-11-28] MEDS: ZOFRAN IV PRN ×7 (00:35→21:47)
[2016-11-28] MEDS: DILAUDID IV PRN ×7 (00:35→21:34)
[2016-11-28] MEDS: CARAFATE PO SCH ×2 (08:55→11:47)
[2016-11-28] MEDS: PROTONIX IV SCH (10:00)
[2016-11-28] MEDS ORDERED: WATER FOR IRRIG STERILE IR ONE (11:45)
[2016-11-28] MEDS ORDERED: SUBLIMAZE ONE (12:47)
[2016-11-28] MEDS ORDERED: VERSED IV ONE ×2 (12:47→12:59)
[2016-11-28] MEDS ORDERED: HURRICAINE ONE 20% TOPICAL SPRAY MM (12:48)
[2016-11-28] MEDS: NACL 0.9% 1000 ML 1,000 ML IV SCH (12:50)
[2016-11-28] MEDS ORDERED: BENADRYL ONE (12:55)
[2016-11-28] MEDS ORDERED: SUBLIMAZE IV ONE ×2 (12:57→12:59)
[2016-11-28] MEDS ORDERED: BENADRYL IV ONE (13:00)
--- NOTE | 2016-11-28 13:08 | Post Operative Note ---
Pre-op diagnosis: Abnormal CT, PUD Post-op diagnosis: other (Duodenal edema) Findings: 1. Normal esophagus and stomach 2. Edematous duodenal folds 3. No ulcers noted Procedure: EGD Anesthesia: other (IV conscious - Versed - 3mg, Fentanyl - 75 mcg, Benadryl - 25 mg) Surgeon: CHRISTIANO WEBB Estimated blood loss: none Pathology: none Condition: stable Disposition: floor (Check GB ultrasound)
[2016-11-28] MEDS ORDERED: DIPRIVAN 10 MG/ML IV ONE ×2 (13:39)
--- NOTE | 2016-11-28 13:57 | Operative Report ---
PROCEDURE: Upper endoscopy. PREOPERATIVE DIAGNOSES: Abnormal CT scan and peptic ulcer disease. POSTOPERATIVE DIAGNOSES: Normal stomach and esophagus with duodenal edematous fold noted. SEDATION: IV conscious using Versed 3 mg, fentanyl 75 mcg, and Benadryl 25 mg. HISTORY: The patient is a 46-year-old man with a distant history of pancreatitis, who presented with abdominal pain and elevated lipase. His liver enzymes were normal. CT was done which reportedly shows normal pancreas, but inflammation of the duodenal and gastric wall with surrounding inflammation. Procedure, indications, risks, and benefits were explained and consent was obtained. The patient was placed in left lateral decubitus position and sedated. [employer] video upper scope was passed through the mouth and oropharynx into the descending duodenum. Scope was then gradually withdrawn with close inspection of mucosa. FINDINGS: 1. Normal appearing esophagus with sharp Z-line located at 40 cm from the incisors. 2. Normal appearing gastric antrum, fundus, body, and cardia. 3. Mucosal folds in the duodenum just past the apex of the bulb were edematous through the 2nd and 3rd portion. Remainder of duodenum distally appeared to be normal. No peptic ulcers were noted. The patient tolerated the procedure well without immediate complication. IMPRESSION: 1. Edematous folds in duodenum. 2. Otherwise, normal upper endoscopy. 3. The patient likely has pancreatitis as his main autoimmune disease process. PLAN: Check gallbladder ultrasound. [facility]# [id number] HRC/NTS
[2016-11-28] MEDS ORDERED: PERCOCET 5/325 PO PRN (14:59)
--- NOTE | 2016-11-28 16:34 | Progress Note ---
Assessment and Plan Assessment and plan: Acute pancreatitis * start back on clear liquid today * Continue IV fluid hydration * As needed pain and nausea medicine with IV * GI following, trend lipase * add oral percocet along with IV dilaudid PUD * CT abdomen showed possible PUD * s/p EGD showed normal gastric lining and Edematous duodenal folds * cont protonix Hypertensive emergency * Continue clonidine patch * BP was 184/121 on admission, now controlled * Labetalol IV as needed, hold for bradycardia Nicotine dependence * Placed on nicotine patch GI and DVT prophylaxis * Continue Protonix and Lovenox Procedure: EGD Findings: 1. Normal esophagus and stomach 2. Edematous duodenal folds 3. No ulcers noted History Interval history: Patient seen and examined. Medical records and medication list reviewed. Patient still c/o abdominal pain and nausea seeking more pain meds s/p EGD today Hospitalist Physical - Physical exam Narrative exam: GENERAL: well-developed white male lying on bed appeared to be in moderate discomfort. HEENT: Normocephalic. Atraumatic. No conjunctival congestion or icterus. Patient has moist mucous membranes. NECK: Supple. Trachea midline. CHEST/LUNGS: Clear to auscultated bilaterally, breathing nonlabored. No wheezes crackles or rhonchi. HEART/CARDIOVASCULAR: Regular in rate and rhythm. S1 and S2 positive. ABDOMEN: Abdomen is soft, epigastric tenderness. Patient has normal bowel sounds. SKIN: There is no rash. Warm and dry. NEURO: No focal motor deficit. Follows command. MUSCULOSKELETAL: No joint effusion or tenderness. EXTRIMITY: No edema, no cyanosis or clubbing. PSYCH: Cooperative. - Constitutional Vitals: Temp Pulse Resp BP Pulse Ox 98.5 F 56 L 15 131/81 95 11/28/16 13:43 11/28/16 13:43 11/28/16 13:43 11/28/16 13:43 11/28/16 13:43 Results - Labs CBC & Chem 7: 11/27/16 06:58 11/27/16 06:58 Labs: Laboratory Last Values WBC 10.0 K/mm3 (4.5-11.0) 11/27/16 06:58 RBC 4.70 M/mm3 (3.65-5.03) 11/27/16 06:58 Hgb 12.7 gm/dl (11.8-15.2) 11/27/16 06:58 Hct 40.8 % (35.5-45.6) D 11/27/16 06:58 MCV 87 fl (84-94) 11/27/16 06:58 MCH 27 pg (28-32) L 11/27/16 06:58 MCHC 31 % (32-34) L 11/27/16 06:58 RDW 16.8 % (13.2-15.2) H 11/27/16 06:58 Plt Count 209 K/mm3 (140-440) 11/27/16 06:58 Lymph % (Auto) 15.3 % (13.4-35.0) 11/27/16 06:58 [place] % (Auto) 8.0 % (0.0-7.3) H 11/27/16 06:58 Eos % (Auto) 0.3 % (0.0-4.3) 11/27/16 06:58 Baso % (Auto) 0.1 % (0.0-1.8) 11/27/16 06:58 Lymph # 1.5 K/mm3 (1.2-5.4) 11/27/16 06:58 [place] # 0.8 K/mm3 (0.0-0.8) 11/27/16 06:58 Eos # 0.0 K/mm3 (0.0-0.4) 11/27/16 06:58 Baso # 0.0 K/mm3 (0.0-0.1) 11/27/16 06:58 Seg Neutrophils % 76.3 % (40.0-70.0) H 11/27/16 06:58 Seg Neutrophils # 7.6 K/mm3 (1.8-7.7) 11/27/16 06:58 Sodium 140 mmol/L (137-145) 11/27/16 06:58 Potassium 4.2 mmol/L (3.6-5.0) 11/27/16 06:58 Chloride 102.0 mmol/L (98-107) 11/27/16 06:58 Carbon Dioxide 22 mmol/L (22-30) 11/27/16 06:58 Anion Gap 20 mmol/L 11/27/16 06:58 BUN 23 mg/dL (9-20) H 11/27/16 06:58 Creatinine 0.7 mg/dL (0.8-1.5) L 11/27/16 06:58 Estimated GFR > 60 ml/min 11/27/16 06:58 BUN/Creatinine Ratio 32.85 % 11/27/16 06:58 Glucose 95 mg/dL (75-100) 11/27/16 06:58 Calcium 8.9 mg/dL (8.4-10.2) D 11/27/16 06:58 Total Bilirubin 0.6 mg/dL (0.1-1.2) 11/25/16 13:27 AST 18 units/L (5-40) 11/25/16 13:27 ALT 23 units/L (7-56) 11/25/16 13:27 Alkaline Phosphatase 124 units/L (35-129) 11/25/16 13:27 C-Reactive Protein 1.00 mg/dL (0.00-1.30) 11/26/16 07:12 Total Protein 8.8 g/dL (6.3-8.2) H 11/25/16 13:27 Albumin 4.7 g/dL (3.9-5) 11/25/16 13:27 Albumin/Globulin Ratio 1.1 % 11/25/16 13:27 Triglycerides 86 mg/dL (2-149) 11/26/16 07:12 Lipase 1069 units/L (13-60) H 11/27/16 06:58 Urine Color Yellow (Yellow) 11/25/16 15:49 Urine Turbidity Clear (Clear) 11/25/16 15:49 Urine pH 5.0 (5.0-7.0) 11/25/16 15:49 Ur Specific [place] 1.020 (1.003-1.030) 11/25/16 15:49 Urine Protein >500 mg/dL (Negative) 11/25/16 15:49 Urine Glucose (UA) Neg mg/dL (Negative) 11/25/16 15:49 Urine Ketones 80 mg/dL (Negative) 11/25/16 15:49 Urine Blood Neg (Negative) 11/25/16 15:49 Urine Nitrite Neg (Negative) 11/25/16 15:49 Urine Bilirubin Neg (Negative) 11/25/16 15:49 Urine Urobilinogen < 2.0 mg/dL (<2.0) 11/25/16 15:49 Ur Leukocyte Esterase Neg (Negative) 11/25/16 15:49 Urine WBC (Auto) 2.0 /HPF (0.0-6.0) 11/25/16 15:49 Urine RBC (Auto) 1.0 /HPF (0.0-6.0) 11/25/16 15:49 Urine Mucus Few /HPF 11/25/16 15:49
[2016-11-29] MEDS: DILAUDID IV PRN ×4 (00:57→11:44)
[2016-11-29] MEDS: ZOFRAN IV PRN ×4 (00:57→11:43)
--- NOTE | 2016-11-29 08:21 | Ultrasound Report ---
RIGHT UPPER QUADRANT ULTRASOUND: HISTORY: Right upper quadrant abdominal pain, pancreatitis. Technique: Transabdominal ultrasound imaging with Doppler interrogation. FINDINGS: Compared to the noncontrast CT abdomen performed 11/25/16. The gallbladder is sonolucent with no evidence of stones, polyps or wall thickening. The common duct is normal in caliber. Images of the liver parenchyma, pancreas, right kidney and aorta are within normal limits. No perihepatic ascites. Small right pleural effusion identified. IMPRESSION: Unremarkable right upper quadrant ultrasound. No evidence for cholelithiasis. Small right pleural effusion.
[2016-11-29] MEDS: NACL 0.9% 1000 ML 1,000 ML IV SCH (08:43)
[2016-11-29] MEDS: PROTONIX IV SCH (10:23)
[2016-11-29 11:07] VITALS: BP 96/57
--- NOTE | 2016-11-29 11:14 | Gastroenterology Progress Note ---
Assessment and Plan 1. Abdominal Pain -Pancreatitis, possibly A/C. CRP WNL. CT noted for questionable PUD. S/P EGD with no ulcers noted, however edematous duodenal folds. Continues to have pain on clear liquids with nausea, no vomiting. Continue PPI. Ativan 0.5mg IV BID, Fleet enema x1 for constipation ( no BM x5 days). GB US negative. Subjective Date of service: 11/29/16 Principal diagnosis: Abdominal pain Interval history: Patient continues to have epigastric RUQ pain. Objective - Constitutional Vitals: Temp Pulse Resp BP Pulse Ox 97.8 F 54 L 14 96/57 99 11/29/16 11:06 11/29/16 11:06 11/29/16 11:06 11/29/16 11:06 11/29/16 11:06 General appearance: mild distress - EENT Eyes: EOM intact ENT: hearing intact - Neck Neck: supple - Respiratory Respiratory: bilateral: CTA - Cardiovascular Rhythm: regular Heart Sounds: Present: S1 & S2 - Gastrointestinal General gastrointestinal: Present: soft, tender, normal bowel sounds - Integumentary Integumentary: Present: warm, dry - Labs CBC & Chem 7: 11/27/16 06:58 11/27/16 06:58 Labs: Laboratory Results - last 24 hr 11/29/16 06:03 Lipase 1070 H
[2016-11-29] MEDS ORDERED: ATIVAN IV SCH (11:15)
--- NOTE | 2016-11-29 11:28 | Progress Note ---
Assessment and Plan Assessment and plan: Patient is a 46-year-old man history of hypertension and pancreatitis who presented with epigastric abdominal pain -Acute on chronic pancreatitis -Acute kidney injury, due to vasomotor nephropathy present on admission creatinine down to 0.7 from 1.0 -SIRS white blood cell count 14.4 and heart rate 112 present on admission -Hypotension, I removed a clonidine patch from his left arm which has been there for about 2 days: Hold antihypertensives if stat dose of 500 mL normal saline bolus Full code disposition: Continue inpatient care, once blood pressure stabilized he possibly discharge tomorrow if he is tolerating a diet History Interval history: Patient seen and examined. Follow up on abdominal pain which is still present. He is tolerating clear liquid diet. Has not had a bowel movement and oriented 2 days. He is asking for more pain medicine however he had episode of hypo- tension last night; therefore, IV Dilaudid was sent which angered him. No cp, sob, n/v or severe headaches. Imaging, old records, testing, labs, nursing notes reviewed. Hospitalist Physical - Physical exam Narrative exam: GEN: WDWN, NAD, AWAKE, ALERT, ORIENTATED 3 HEENT: NCAT, PERRL, EOMI, OP CLEAR NECK: SUPPLE, NO THYROMEGALY, NO JVD, NO LAD CVS: RRR, NORMAL S1S2 LUNGS/CHEST: CTA B, NORMAL CHEST EXPANSION B, GOOD AIR ENTRY B ABD: SOFT, NONDISTENDED, EPIGASTRIC TENDERNESS GBS, NO REBOUND OR GUARDING EXT/SKIN: NO SIGNIFICANT EDEMA OR RASH MSK: FROM X 4 EXTREMITIES NEURO: CN 2-12 GROSSLY INTACT, NO FOCAL DEFICITS PSY: CALM - Constitutional Vitals: Temp Pulse Resp BP Pulse Ox 97.8 F 54 L 14 96/57 99 11/29/16 11:06 11/29/16 11:06 11/29/16 11:06 11/29/16 11:06 11/29/16 11:06 Results - Labs CBC & Chem 7: 11/27/16 06:58 11/27/16 06:58 Labs: Laboratory Last Values WBC 10.0 K/mm3 (4.5-11.0) 11/27/16 06:58 RBC 4.70 M/mm3 (3.65-5.03) 11/27/16 06:58 Hgb 12.7 gm/dl (11.8-15.2) 11/27/16 06:58 Hct 40.8 % (35.5-45.6) D 11/27/16 06:58 MCV 87 fl (84-94) 11/27/16 06:58 MCH 27 pg (28-32) L 11/27/16 06:58 MCHC 31 % (32-34) L 11/27/16 06:58 RDW 16.8 % (13.2-15.2) H 11/27/16 06:58 Plt Count 209 K/mm3 (140-440) 11/27/16 06:58 Lymph % (Auto) 15.3 % (13.4-35.0) 11/27/16 06:58 [place] % (Auto) 8.0 % (0.0-7.3) H 11/27/16 06:58 Eos % (Auto) 0.3 % (0.0-4.3) 11/27/16 06:58 Baso % (Auto) 0.1 % (0.0-1.8) 11/27/16 06:58 Lymph # 1.5 K/mm3 (1.2-5.4) 11/27/16 06:58 [place] # 0.8 K/mm3 (0.0-0.8) 11/27/16 06:58 Eos # 0.0 K/mm3 (0.0-0.4) 11/27/16 06:58 Baso # 0.0 K/mm3 (0.0-0.1) 11/27/16 06:58 Seg Neutrophils % 76.3 % (40.0-70.0) H 11/27/16 06:58 Seg Neutrophils # 7.6 K/mm3 (1.8-7.7) 11/27/16 06:58 Sodium 140 mmol/L (137-145) 11/27/16 06:58 Potassium 4.2 mmol/L (3.6-5.0) 11/27/16 06:58 Chloride 102.0 mmol/L (98-107) 11/27/16 06:58 Carbon Dioxide 22 mmol/L (22-30) 11/27/16 06:58 Anion Gap 20 mmol/L 11/27/16 06:58 BUN 23 mg/dL (9-20) H 11/27/16 06:58 Creatinine 0.7 mg/dL (0.8-1.5) L 11/27/16 06:58 Estimated GFR > 60 ml/min 11/27/16 06:58 BUN/Creatinine Ratio 32.85 % 11/27/16 06:58 Glucose 95 mg/dL (75-100) 11/27/16 06:58 Calcium 8.9 mg/dL (8.4-10.2) D 11/27/16 06:58 Total Bilirubin 0.6 mg/dL (0.1-1.2) 11/25/16 13:27 AST 18 units/L (5-40) 11/25/16 13:27 ALT 23 units/L (7-56) 11/25/16 13:27 Alkaline Phosphatase 124 units/L (35-129) 11/25/16 13:27 C-Reactive Protein 1.00 mg/dL (0.00-1.30) 11/26/16 07:12 Total Protein 8.8 g/dL (6.3-8.2) H 11/25/16 13:27 Albumin 4.7 g/dL (3.9-5) 11/25/16 13:27 Albumin/Globulin Ratio 1.1 % 11/25/16 13:27 Triglycerides 86 mg/dL (2-149) 11/26/16 07:12 Lipase 1070 units/L (13-60) H 11/29/16 06:03 Urine Color Yellow (Yellow) 11/25/16 15:49 Urine Turbidity Clear (Clear) 11/25/16 15:49 Urine pH 5.0 (5.0-7.0) 11/25/16 15:49 Ur Specific [place] 1.020 (1.003-1.030) 11/25/16 15:49 Urine Protein >500 mg/dL (Negative) 11/25/16 15:49 Urine Glucose (UA) Neg mg/dL (Negative) 11/25/16 15:49 Urine Ketones 80 mg/dL (Negative) 11/25/16 15:49 Urine Blood Neg (Negative) 11/25/16 15:49 Urine Nitrite Neg (Negative) 11/25/16 15:49 Urine Bilirubin Neg (Negative) 11/25/16 15:49 Urine Urobilinogen < 2.0 mg/dL (<2.0) 11/25/16 15:49 Ur Leukocyte Esterase Neg (Negative) 11/25/16 15:49 Urine WBC (Auto) 2.0 /HPF (0.0-6.0) 11/25/16 15:49 Urine RBC (Auto) 1.0 /HPF (0.0-6.0) 11/25/16 15:49 Urine Mucus Few /HPF 11/25/16 15:49 - Imaging and Cardiology CT scan - abdomen: report reviewed
[2016-11-29] MEDS ORDERED: FLEET PR ONE (12:00)
[2016-11-29] MEDS ORDERED: NACL 0.9% 500 ML IV SCH (13:00)
--- NOTE | 2016-11-29 15:40 | Discharge Summary ---
Providers - Providers Date of Admission: 11/25/16 20:44 Attending physician: KIRT SALGUERO 11/25/16 20:51 Consult to Dietitian/Nutrition [CONS] Routine Physician Instructions: TPN from day 3 or day 4-will defer to dietitian Reason For Exam: Reason for Consult: Nutrition Recommendations Reason for Consult: Write/Manage TPN/PPN Primary care physician: ZAYNAB LEAHY MD Hospitalization Condition: Stable Hospital course: Patient is a 46-year-old man history of hypertension and pancreatitis who presented with epigastric abdominal pain -Acute on chronic pancreatitis -Acute kidney injury, due to vasomotor nephropathy present on admission creatinine down to 0.7 from 1.0 -SIRS white blood cell count 14.4 and heart rate 112 present on admission -Hypotension, I removed a clonidine patch from his left arm which has been there for about 2 days: Hold antihypertensives if stat dose of 500 mL normal saline bolus Full code disposition: Continue inpatient care, once blood pressure stabilized he possibly discharge tomorrow if he is tolerating a diet Disposition: LEFT AGAINST MEDICAL ADVICE Core Measure Documentation - Palliative Care Palliative Care/ Comfort Measures: Not Applicable - Core Measures Any of the following diagnoses?: none - VTE Discharge Requirements Deep Vein Thrombosis/Pulmonary Embolism Present on Admission: No Has pt received <5 days of overlap therapy or INR<2.0: No Anticoagulant overlap therapy prescribed at discharge: No Contraindication No Overlap Therapy order at DC: Not Indicated Exam - Physical Exam Narrative exam: GEN: WDWN, NAD, AWAKE, ALERT, ORIENTATED 3 HEENT: NCAT, PERRL, EOMI, OP CLEAR NECK: SUPPLE, NO THYROMEGALY, NO JVD, NO LAD CVS: RRR, NORMAL S1S2 LUNGS/CHEST: CTA B, NORMAL CHEST EXPANSION B, GOOD AIR ENTRY B ABD: SOFT, NONDISTENDED, EPIGASTRIC TENDERNESS GBS, NO REBOUND OR GUARDING EXT/SKIN: NO SIGNIFICANT EDEMA OR RASH MSK: FROM X 4 EXTREMITIES NEURO: CN 2-12 GROSSLY INTACT, NO FOCAL DEFICITS PSY: CALM - Constitutional Vitals: Temp Pulse Resp BP Pulse Ox 97.8 F 54 L 14 96/57 99 11/29/16 11:06 11/29/16 11:06 11/29/16 11:06 11/29/16 11:06 11/29/16 11:06 Plan Follow up with: PRIMARY CAREMD [Primary Care Provider] - 3-5 Days
== END 2016-11-29 12:56 | disposition left against medical advice (07) | DRG 438 ==
LOC: ED 12:12 → 3A 20:44
PROVIDERS: ADMIT Internal Medicine; ATTEND Internal Medicine
PROC: 0DJ08ZZ Inspection of Upper Intestinal Tract, Via Natural or Artificial Opening Endoscopic (ICD-10-PCS; principal; 2016-11-28)
DX: K85.90 Acute pancreatitis without necrosis or infection, unspecified (principal); N17.0 Acute kidney failure with tubular necrosis; I16.1 Hypertensive emergency; R65.10 Systemic inflammatory response syndrome (SIRS) of non-infectious origin without acute organ dysfunction; K86.0 Alcohol-induced chronic pancreatitis; I10 Essential (primary) hypertension; F17.210 Nicotine dependence, cigarettes, uncomplicated; I95.9 Hypotension, unspecified; Z82.49 Family history of ischemic heart disease and other diseases of the circulatory system; Z90.89 Acquired absence of other organs
CPT/HCPCS: 36415; 74150; 76705; 80048; 80053; 81001; 83690; 84478; 85025; 86140; 96372; 96374; 96375; 96376; C9113; J0360; J1170; J1200; J2060; J2250; J2405; J2704; J2765; J3010; J7030